=== PATIENT | male | born 1955 | race Caucasian/White ===

== ENCOUNTER 2017-01-02 08:08 | Day surgery (SDC) | payer BC ==
[~2017-01-02] VITALS: Ht 177.8 cm; Wt 106.6 kg
[~2017-01-02 08:08] MED LIST: GLYCOPYRROLATE INJ 0.2 MG/ML 2 ML VIAL As Ordered ONE; LIDOCAINE 2% INJ 100 MG/5 ML SDV (FOR ANES.) As Ordered ONE; MIDAZOLAM INJ 2 MG/2 ML VIAL (J2250) As Ordered ONE; NEOSTIGMINE 10 MG/10 ML VIAL (J2710) As Ordered ONE; ONDANSETRON 4MG/2ML VIAL (J2405) As Ordered ONE; PROPOFOL 200 MG/20 ML VIAL As Ordered ONE; ROCURONIUM BROMIDE 50 MG/5 ML VIAL/SYRINGE As Ordered ONE; dexameTHASONE 4 MG/ML 1ML VIAL (J1100) As Ordered ONE; fentaNYL 100 MCG/2 ML INJECTION (J3010) As Ordered ONE
[2017-01-02] MEDS ORDERED: LR 1,000 ML IV ONE (08:15)
[2017-01-02] MEDS ORDERED: LIDOCAINE W/EPINEPHRINE 1% 20ML VIAL As Ordered ONE (09:26)
[2017-01-02] MEDS ORDERED: METHYLENE BLUE 0.5% (5MG/ML) 10 ML AMP (PROVAYBLUE)(Q9968 PER 1MG) As Ordered ONE (09:26)
[2017-01-02] MEDS ORDERED: EPINEPHrine 1MG/ML INJ 30ML MD-VIAL As Ordered ONE ×2 (09:26→10:49)
[2017-01-02] MEDS ORDERED: fentaNYL 100 MCG/2 ML INJECTION (J3010) As Ordered ONE (10:12)
[2017-01-02] MEDS ORDERED: PROPOFOL 200 MG/20 ML VIAL As Ordered ONE (10:56)
[2017-01-02] MEDS ORDERED: MORPHINE 10 MG/ML 1ML VIAL IV PRN (11:45)
[2017-01-02] MEDS ORDERED: ONDANSETRON 4MG/2ML VIAL (J2405) IV PRN (11:45)
[2017-01-02] MEDS ORDERED: LR 1,000 ML IV SCH ×2 (11:45)
[2017-01-02] MEDS ORDERED: ACETAMINOPH W/CODEINE #3 TAB UD PO PRN (11:45)
[2017-01-02] MEDS ORDERED: MEPERIDINE INJ 25 MG/ML VIAL (J2175) IV PRN (11:45)
[2017-01-02] MEDS ORDERED: METOCLOPRAMIDE INJ 10MG/2ML VIAL (J2765) IV PRN (11:45)
[2017-01-02] MEDS: PERCOCET 5MG/325MG TAB PO PRN ×2 (11:56→12:36)
[2017-01-02] MEDS: fentaNYL 100 MCG/2 ML INJECTION (J3010) IV PRN ×3 (12:14→12:28)
[2017-01-02 13:25] VITALS: BP 128/85
--- NOTE | 2017-01-03 07:42 | RO ---
DATE OF PROCEDURE: 01/02/2017 PREOPERATIVE DIAGNOSIS: Chronic rhinosinusitis with polyposis. POSTOPERATIVE DIAGNOSIS: Chronic rhinosinusitis with polyposis. OPERATIVE PROCEDURE: Bilateral polypectomy, antrostomy, ethmoidectomy, septoplasty, and right turbinectomy. SURGEON: Dr. Reynaldo Yousif [employer] CONSULTANT: ANESTHESIA: FINDINGS: There was polypoid tissue of the sinuses. I opened to the nasofrontal area. Under general anesthesia with the patient intubated, the patient was prepped and draped in the usual manner. I used pledgets of adrenaline 1:1000 and infiltrated with lidocaine and epinephrine. I started by making an incision anteriorly on the septum and elevated a subperichondrial and periosteal plane. I the quadrangular cartilage from the ethmoid plate and maxillary crest and removed portions of the ethmoid plate and the maxillary crest and vomer which were deviated. Once this was done, the septum was straight. The incision closed with interrupted #4-0 chromic and #4-0 Vicryl. I then started on the right side by removing the medial portion of the middle turbinate. Then, I went between the lateral aspect of the middle turbinate in the nasal wall and identified the natural sinus ostium. I used the balloon and inserted the balloon into the sinus. First, the feeding guide and then the balloon and then inflated the balloon twice. Once this was done, the natural sinus ostium was open. I did the same on both sides. Then, I opened the anterior ethmoid air cells and went from anterior to posteriorly and then posteriorly I went superiorly and followed it anteriorly. There was a lot of polypoid tissue in this area. There was polypoid tissue in the osteomeatal complex area, especially on the left side. There was a purulent fluid in the left maxillary sinus. This was suctioned. I then remove tissue in the nasofrontal area on both sides. Once this was done, it looked very good. I used pledges of adrenaline 1:1000. There was approximately less than 50 mL estimated blood loss. I put Propel implants in both sides in the osteomeatal complex area. The patient tolerated the procedure well, was extubated and transferred to the recovery room in excellent condition.
== END 2017-01-02 14:00 | disposition home or self-care (01) ==
LOC: M SDC 08:08
PROVIDERS: ATTEND Otolaryngology
DX: J34.2 Deviated nasal septum (principal); J32.4 Chronic pansinusitis; J33.9 Nasal polyp, unspecified; R06.83 Snoring; Z87.891 Personal history of nicotine dependence
CPT/HCPCS: 30130; 30520; 31255; 31256; 88305; C2625; J1100; J2250; J2405; J3010; Q9968

== ENCOUNTER → 2017-09-07 | Outpatient (REF) | payer BC | LOC: M LAB REF 09:48 | DX: D23.11 Other benign neoplasm of skin of right eyelid, including canthus (principal) | CPT/HCPCS: 88305 ==